=== PATIENT | male | born 1965 | race Caucasian/White ===

== ENCOUNTER 2017-03-02 20:25 | Emergency (ER) | payer SELFPAY ==
[~2017-03-02] VITALS: Ht 180.3 cm; Wt 75.0 kg
[2017-03-02 20:55] VITALS: BP 193/107; PULSE 92; RESP 16; O2SAT 99
== END 2017-03-02 21:03 | disposition left against medical advice (07) ==
LOC: SED 20:25
DX: L02.414 Cutaneous abscess of left upper limb (principal); F41.0 Panic disorder [episodic paroxysmal anxiety]; Z53.29 Procedure and treatment not carried out because of patient's decision for other reasons